=== PATIENT | male | born 1995 | race Caucasian/White ===

== ENCOUNTER 2019-03-04 17:42 | Inpatient (IN) | payer OTHER ==
[~2019-03-04] VITALS: Ht 188 cm; Wt 170.0 kg
--- NOTE | 2019-03-04 19:51 | NUR ---
THE PT STATED THAT HE HAS BEEN TO "3 DIFFERENT ERS WITH NO HELP" THE LAST ONE BEING LORI TEJADA.
--- NOTE | 2019-03-04 20:55 | NUR ---
MRI SHEET COMPLETED AND FAXED.
[2019-03-04] MEDS ORDERED: HYDROmorphone 1 MG/ML, 1ML VIAL ONE ×3 (20:57→22:21)
[2019-03-04] MEDS ORDERED: ONDANSETRON 2MG/ML, 2ML ONE (20:57)
[2019-03-04] MEDS ORDERED: SODIUM CHLORIDE FLUSH 10ML SYR IVF ONE (21:00)
[2019-03-04] MEDS: PLEASE ENTER ALLERGIES MC SCH ×2 (21:00→22:26)
[2019-03-04] MEDS ORDERED: ONDANSETRON 2MG/ML, 2ML IVPush ONE (21:00)
[2019-03-04] MEDS: HYDROmorphone 2 MG/ML, 1ML IVPush PRN ×2 (21:11→21:25)
--- NOTE | 2019-03-04 21:24 | NUR ---
TO MRI FOR THE SECOND DOSE OF DILAUDID THE PT WAS UNABLE TO LIE FLAT ON THE TABLE.
[2019-03-04] MEDS ORDERED: HYDROmorphone 2 MG/ML, 1ML IVPush PRN (22:30)
--- NOTE | 2019-03-04 22:30 | NUR ---
BACK FROM MRI.
[2019-03-04] MEDS ORDERED: SODIUM CHLORIDE FLUSH 10ML SYR IVF PRN (23:00)
[2019-03-04] MEDS ORDERED: HYDROmorphone 1 MG/ML, 1ML INJ IVPush PRN (23:00)
[2019-03-04] MEDS ORDERED: ONDANSETRON 2MG/ML, 2ML IVPush PRN (23:00)
[2019-03-04] MEDS ORDERED: LORazepam 2 MG/ML, 1ML IVPush PRN (23:00)
--- NOTE | 2019-03-04 23:17 | NUR ---
NOTED THE PT DESAT TO 88% ON R/A AFTER THE 3RD DOSE OF DILAUDID. PLACED ON 2L NC PER ED CARE PROTOCOL ERP IN ROOM. NOW 97 % ON 2L NC.
[2019-03-04 23:30] VITALS: BP 150/94
[2019-03-05] MEDS ORDERED: TEMAZEPAM 15 MG CAPSULE PO PRN (00:30)
[2019-03-05] MEDS ORDERED: ACETAMINOPHEN 325 MG TABLET PO PRN (00:30)
[2019-03-05] MEDS ORDERED: BISACODYL 10 MG SUPP PR PRN (00:30)
[2019-03-05] MEDS ORDERED: HYDROmorphone 1 MG/ML, 1ML INJ IV ONE (00:30)
[2019-03-05] MEDS: HYDROmorphone 2 MG/ML, 1ML IVPush PRN ×7 (00:54→20:32)
[2019-03-05 01:02] VITALS: BP 150/94
[2019-03-05 05:54] VITALS: BP 121/85
[2019-03-05 07:03] VITALS: BP 144/86
[2019-03-05] MEDS: GABAPENTIN 300 MG CAPSULE PO SCH ×3 (08:31→20:32)
[2019-03-05 09:00] LABS: BASOPHILS # (AUTO) 0.08 x10^3/uL (0-0.1); BASOPHILS % (AUTO) 1 % (0-1); EOSINOPHILS # (AUTO) 0.18 x10^3/uL (0-0.4); EOSINOPHILS % (AUTO) 2 % (1-7); LYMPHOCYTES # (AUTO) 1.93 x10^3/uL (1-3.4); LYMPHOCYTES % (AUTO) 25 % (22-44); MD NO; MEAN CORPUSCULAR HEMOGLOBIN 30.7 pg (27.5-34.5); MEAN CORPUSCULAR HGB CONC 33.6 g/dL (33.2-36.2); MEAN CORPUSCULAR VOLUME 91.5 fL (81-97); MEAN PLATELET VOLUME 7.8 fL (7.4-10.4); MONOCYTES # (AUTO) 0.66 x10^3/uL (0.2-0.8); MONOCYTES % (AUTO) 9 % (2-9); NEUTROPHILS # (AUTO) 4.79 x10^3/uL (1.8-6.8); NEUTROPHILS % (AUTO) 63 % (42-75); PLATELET COUNT 231 x10^3/uL (130-400); RED BLOOD COUNT 4.83 x10^6/uL (4.38-5.82); RED CELL DISTRIBUTION WIDTH 13.1 % (9.4-14.8)
[2019-03-05 09:10] LABS: INTERNATIONAL NORMALIZED RATIO 0.99 (0.93-1.1); PROTHROMBIN TIME 10.4 Seconds (9.6-11.5)
[2019-03-05 09:20] LABS: ANION GAP 6 mmol/L (5-15); CALCIUM 8.8 mg/dL (8.5-10.1); CHLORIDE 105 mmol/L (98-107); CREATININE 0.93 mg/dL (0.7-1.3)
[2019-03-05 12:16] VITALS: BP 126/88
[2019-03-05 20:20] VITALS: BP 138/85
[2019-03-06] MEDS: HYDROmorphone 2 MG/ML, 1ML IVPush PRN ×6 (01:42→23:43)
[2019-03-06 02:09] VITALS: BP 129/81
[2019-03-06 05:22] LABS: BASOPHILS # (AUTO) 0.03 x10^3/uL (0-0.1); BASOPHILS % (AUTO) 0 % (0-1); EOSINOPHILS # (AUTO) 0.09 x10^3/uL (0-0.4); EOSINOPHILS % (AUTO) 1 % (1-7); LYMPHOCYTES # (AUTO) 1.31 x10^3/uL (1-3.4); LYMPHOCYTES % (AUTO) 15 % (22-44); MD NO; MEAN CORPUSCULAR HGB CONC 33.4 g/dL (33.2-36.2); MEAN CORPUSCULAR VOLUME 92.8 fL (81-97); MEAN PLATELET VOLUME 8.3 fL (7.4-10.4); MONOCYTES # (AUTO) 0.71 x10^3/uL (0.2-0.8); MONOCYTES % (AUTO) 8 % (2-9); NEUTROPHILS # (AUTO) 6.73 x10^3/uL (1.8-6.8); NEUTROPHILS % (AUTO) 76 % (42-75); PLATELET COUNT 244 x10^3/uL (130-400); RED BLOOD COUNT 4.86 x10^6/uL (4.38-5.82); RED CELL DISTRIBUTION WIDTH 12.3 % (9.4-14.8)
[2019-03-06 05:33] LABS: ANION GAP 7 mmol/L (5-15); CALCIUM 9.1 mg/dL (8.5-10.1); CHLORIDE 104 mmol/L (98-107); CREATININE 0.84 mg/dL (0.7-1.3)
[2019-03-06] MEDS: GABAPENTIN 300 MG CAPSULE PO SCH ×3 (08:18→19:49)
[2019-03-06 09:34] VITALS: BP 142/87
[2019-03-06] MEDS: DOCUSATE 100 MG CAPSULE PO SCH ×2 (12:38→19:49)
[2019-03-06 15:16] VITALS: BP 145/90
[2019-03-06 19:31] VITALS: BP 132/92
[2019-03-06] MEDS: MAGNESIUM HYDROXIDE 8%, 30ML UDC PO SCH ×2 (19:49→21:00)
[2019-03-07 00:35] VITALS: BP 147/83
[2019-03-07] MEDS: MAGNESIUM HYDROXIDE 8%, 30ML UDC PO SCH ×2 (00:38→21:00)
[2019-03-07] MEDS: HYDROmorphone 2 MG/ML, 1ML IVPush PRN ×2 (04:11→19:32)
[2019-03-07 07:38] VITALS: BP 155/90
[2019-03-07] MEDS: GABAPENTIN 300 MG CAPSULE PO SCH ×3 (08:22→20:34)
[2019-03-07] MEDS: DOCUSATE 100 MG CAPSULE PO SCH ×2 (08:22→20:34)
[2019-03-07] MEDS: METHOCARBAMOL 750 MG TABLET PO PRN ×2 (08:25→20:34)
[2019-03-07] MEDS: HYDROcodone/APAP 5/325 TABLET PO PRN (08:26)
[2019-03-07] MEDS ORDERED: GABAPENTIN 100 MG CAPSULE PO SCH (09:00)
[2019-03-07] MEDS ORDERED: HYDROCORTISONE 250 MG/2 ML ONE (13:17)
[2019-03-07] MEDS ORDERED: MIDAZOLAM 1 MG/ML, 5ML ONE (14:22)
[2019-03-07] MEDS ORDERED: FENTANYL PF 100 MCG/2ML ONE ×2 (14:22)
[2019-03-07] MEDS ORDERED: NALOXONE 1 MG/ML, 2ML ONE (14:23)
[2019-03-07] MEDS ORDERED: FLUMAZENIL 0.1 MG/1 ML, 5ML ONE (14:23)
[2019-03-07 15:30] VITALS: BP 138/91
[2019-03-07 19:24] VITALS: BP 149/84
[2019-03-08 00:59] VITALS: BP 129/86
[2019-03-08] MEDS: HYDROmorphone 2 MG/ML, 1ML IVPush PRN ×5 (01:03→22:39)
[2019-03-08 06:45] VITALS: BP 143/88
[2019-03-08] MEDS: GABAPENTIN 300 MG CAPSULE PO SCH ×3 (08:09→22:43)
[2019-03-08] MEDS: DOCUSATE 100 MG CAPSULE PO SCH ×2 (08:09→22:43)
[2019-03-08] MEDS: METHOCARBAMOL 750 MG TABLET PO PRN ×2 (08:10→15:56)
[2019-03-08] MEDS: HYDROcodone/APAP 5/325 TABLET PO PRN (08:13)
[2019-03-08] MEDS ORDERED: MAGNESIUM CITRATE 300ML ORAL SOL PO ONE (11:30)
[2019-03-08 12:34] VITALS: BP 133/96
[2019-03-08] MEDS: HYDROcodone/APAP 10/325 MG TABLET PO PRN (15:55)
[2019-03-08 19:59] VITALS: BP 136/84
[2019-03-08] MEDS: MAGNESIUM HYDROXIDE 8%, 30ML UDC PO SCH (22:43)
[2019-03-08] MEDS: LIDODERM 5% PATCH TD PRN (22:46)
[2019-03-09 02:00] VITALS: BP 138/88
[2019-03-09] MEDS: HYDROmorphone 2 MG/ML, 1ML IVPush PRN ×7 (02:13→20:59)
[2019-03-09] MEDS: LIDODERM 5% PATCH TD PRN ×2 (02:53→21:34)
[2019-03-09 07:57] VITALS: BP 158/95
[2019-03-09] MEDS: DOCUSATE 100 MG CAPSULE PO SCH ×2 (09:00→21:00)
[2019-03-09] MEDS: GABAPENTIN 300 MG CAPSULE PO SCH ×3 (09:05→20:56)
[2019-03-09 13:00] VITALS: BP 143/83
[2019-03-09] MEDS: HYDROcodone/APAP 10/325 MG TABLET PO PRN ×2 (13:41→20:47)
[2019-03-09] MEDS: MAGNESIUM HYDROXIDE 8%, 30ML UDC PO SCH (20:56)
[2019-03-09 21:36] VITALS: BP 129/85
[2019-03-10] MEDS: HYDROmorphone 2 MG/ML, 1ML IVPush PRN ×9 (00:18→23:08)
[2019-03-10 00:32] VITALS: BP 137/80
[2019-03-10] MEDS: HYDROcodone/APAP 10/325 MG TABLET PO PRN (02:30)
[2019-03-10 07:16] VITALS: BP 139/94
[2019-03-10] MEDS: DOCUSATE 100 MG CAPSULE PO SCH ×2 (09:49→19:41)
[2019-03-10] MEDS: GABAPENTIN 400 MG CAPSULE PO SCH ×3 (09:50→22:03)
[2019-03-10 13:07] VITALS: BP 128/84
[2019-03-10 19:32] VITALS: BP 151/100
[2019-03-10] MEDS: MAGNESIUM HYDROXIDE 8%, 30ML UDC PO SCH (19:41)
[2019-03-10] MEDS: ONDANSETRON 2MG/ML, 2ML IVPush PRN (19:53)
[2019-03-10] MEDS: LIDODERM 5% PATCH TD PRN (22:03)
[2019-03-10 23:05] VITALS: BP 116/82
[2019-03-11] MEDS: HYDROmorphone 2 MG/ML, 1ML IVPush PRN ×7 (03:01→23:35)
[2019-03-11 03:07] VITALS: BP 138/93
[2019-03-11] MEDS: HYDROcodone/APAP 10/325 MG TABLET PO PRN ×2 (03:28→10:36)
[2019-03-11] MEDS: ONDANSETRON 2MG/ML, 2ML IVPush PRN (06:33)
[2019-03-11 07:06] VITALS: BP 137/83
[2019-03-11] MEDS: GABAPENTIN 400 MG CAPSULE PO SCH ×3 (08:55→23:36)
[2019-03-11] MEDS: DOCUSATE 100 MG CAPSULE PO SCH ×2 (09:00→21:00)
[2019-03-11 13:48] VITALS: BP 143/88
[2019-03-11] MEDS ORDERED: LACTATED RINGERS 1,000 ML IV SCH (19:00)
[2019-03-11 20:22] VITALS: BP 150/93
[2019-03-11] MEDS: MAGNESIUM HYDROXIDE 8%, 30ML UDC PO SCH (21:00)
[2019-03-11] MEDS: LIDODERM 5% PATCH TD PRN (23:36)
[2019-03-12] MEDS: HYDROcodone/APAP 10/325 MG TABLET PO PRN ×2 (00:39→09:48)
[2019-03-12] MEDS: ONDANSETRON 2MG/ML, 2ML IVPush PRN (00:39)
[2019-03-12 00:58] VITALS: BP 137/85
[2019-03-12] MEDS: HYDROmorphone 2 MG/ML, 1ML IVPush PRN ×6 (04:13→18:21)
[2019-03-12 05:19] LABS: BASOPHILS # (AUTO) 0.04 x10^3/uL (0-0.1); BASOPHILS % (AUTO) 0 % (0-1); EOSINOPHILS # (AUTO) 0.23 x10^3/uL (0-0.4); EOSINOPHILS % (AUTO) 2 % (1-7); LYMPHOCYTES # (AUTO) 2.07 x10^3/uL (1-3.4); LYMPHOCYTES % (AUTO) 22 % (22-44); MD NO; MEAN CORPUSCULAR HEMOGLOBIN 30.9 pg (27.5-34.5); MEAN CORPUSCULAR HGB CONC 33.2 g/dL (33.2-36.2); MEAN CORPUSCULAR VOLUME 93.1 fL (81-97); MEAN PLATELET VOLUME 8.1 fL (7.4-10.4); MONOCYTES # (AUTO) 0.45 x10^3/uL (0.2-0.8); MONOCYTES % (AUTO) 5 % (2-9); NEUTROPHILS # (AUTO) 6.62 x10^3/uL (1.8-6.8); NEUTROPHILS % (AUTO) 70 % (42-75); PLATELET COUNT 270 x10^3/uL (130-400); RED CELL DISTRIBUTION WIDTH 12.7 % (9.4-14.8)
[2019-03-12 05:30] LABS: INTERNATIONAL NORMALIZED RATIO 0.95 (0.93-1.1)
[2019-03-12 05:32] LABS: ANION GAP 4 mmol/L (5-15); CALCIUM 8.7 mg/dL (8.5-10.1); CHLORIDE 104 mmol/L (98-107)
[2019-03-12 05:33] LABS: CREATININE 0.73 mg/dL (0.7-1.3)
[2019-03-12 07:25] VITALS: BP 114/77
[2019-03-12] MEDS: GABAPENTIN 400 MG CAPSULE PO SCH ×3 (08:29→21:45)
[2019-03-12] MEDS: DOCUSATE 100 MG CAPSULE PO SCH ×2 (08:31→21:00)
[2019-03-12 13:08] VITALS: BP 142/90
[2019-03-12] MEDS ORDERED: THROMBIN 5,000 UNIT VIAL TP ONE (13:45)
[2019-03-12] MEDS ORDERED: BUPIVACAINE/PF 0.25% ONE (13:45)
[2019-03-12] MEDS ORDERED: BACITRACIN OINT 500U/GM, 15 GM ONE (13:45)
[2019-03-12] MEDS ORDERED: BACITRACIN 50,000 UNIT ONE ×2 (13:46→15:51)
[2019-03-12] MEDS ORDERED: VANCOMYCIN 1,000 MG ONE (13:46)
[2019-03-12] MEDS ORDERED: EPINEPHRINE 1 MG/ML, 1ML ONE (13:46)
[2019-03-12] MEDS ORDERED: MIDAZOLAM 1 MG/ML, 2ML ONE ×2 (14:24→14:47)
[2019-03-12] MEDS ORDERED: FENTANYL PF 250 MCG/5ML ONE (14:25)
[2019-03-12] MEDS ORDERED: HYDROmorphone 2 MG/ML, 1ML IVPush PRN (15:30)
[2019-03-12] MEDS ORDERED: ALBUTEROL SULFATE 2.5 MG/3 ML NPPB PRN (15:30)
[2019-03-12] MEDS ORDERED: KETOROLAC 30 MG/1 ML IV PRN ×2 (15:30→20:30)
[2019-03-12] MEDS ORDERED: LABETALOL 5MG/ML, 20ML IV PRN (15:30)
[2019-03-12] MEDS ORDERED: hydrALAzine 20 MG/ML, 1ML IV PRN (15:30)
[2019-03-12] MEDS ORDERED: MEPERIDINE/PF 25MG/0.5ML IVPush PRN (15:30)
[2019-03-12] MEDS ORDERED: PROMETHAZINE 25 MG/ML, 1ML IV PRN (15:30)
[2019-03-12] MEDS ORDERED: ACETAMINOPHEN 325 MG TABLET PO PRN (15:30)
[2019-03-12] MEDS ORDERED: OXYcodone 5 MG/5 ML ORAL.SOL UDC PO PRN (15:30)
[2019-03-12] MEDS ORDERED: MEPERIDINE/PF 100 MG/ML ONE (17:06)
[2019-03-12] MEDS ORDERED: PROPOFOL 10 MG/ML, 20ML ONE (17:07)
[2019-03-12] MEDS ORDERED: SUCCINYLCHOLINE 20 MG/ML, 10ML ONE (17:07)
[2019-03-12] MEDS ORDERED: CEFAZOLIN 1,000 MG ONE (17:07)
[2019-03-12] MEDS ORDERED: NEOSTIGMINE 1 MG/ML, 10ML ONE (17:07)
[2019-03-12] MEDS ORDERED: ROCURONIUM 10MG/ML,5ML ONE (17:07)
[2019-03-12] MEDS ORDERED: ONDANSETRON 2MG/ML, 2ML ONE (17:07)
[2019-03-12] MEDS ORDERED: DEXAMETHASONE 4 MG/ML, 1ML ONE (17:07)
[2019-03-12] MEDS ORDERED: GLYCOPYRROLATE 0.2MG/1ML, 5ML ONE (17:07)
[2019-03-12] MEDS ORDERED: FENTANYL PF 100 MCG/2ML ONE ×2 (17:24→18:30)
[2019-03-12] MEDS ORDERED: HYDROmorphone 2 MG/ML, 1ML ONE (17:24)
[2019-03-12] MEDS: FENTANYL PF 100 MCG/2ML IV PRN ×4 (17:25→18:38)
[2019-03-12] MEDS ORDERED: DIAZEPAM 5 MG/ML, 2ML ONE (17:32)
[2019-03-12] MEDS: DIAZEPAM 5 MG/ML, 2ML IVPush PRN ×2 (17:36→18:20)
[2019-03-12] MEDS ORDERED: hydrALAzine 20 MG/ML, 1ML ONE (17:42)
[2019-03-12] MEDS ORDERED: METHOCARBAMOL 1000MG/10 ML IV ONE (18:00)
[2019-03-12] MEDS ORDERED: LORazepam 2 MG/ML, 1ML ONE (18:16)
[2019-03-12] MEDS ORDERED: METHOCARBAMOL 1,000 MG in DEXTROSE 5% 100 ML IV ONE (18:30)
[2019-03-12] MEDS ORDERED: OXYcodone 5 MG/5 ML ORAL.SOL UDC ONE (18:46)
[2019-03-12] MEDS ORDERED: ONDANSETRON 2MG/ML, 2ML IV PRN (20:30)
[2019-03-12] MEDS ORDERED: HYDROmorphone 2 MG/ML, 1ML IM PRN (20:30)
[2019-03-12] MEDS ORDERED: PHARMACY MAY ADJ FOR RENAL FX MC PRN (20:30)
[2019-03-12] MEDS ORDERED: DIPHENHYDRAMINE 50 MG/ML, 1ML IVPush PRN (20:30)
[2019-03-12] MEDS ORDERED: BISACODYL 10 MG SUPP PR PRN (20:30)
[2019-03-12] MEDS ORDERED: MAGNESIUM HYDROXIDE 8%, 30ML UDC PO PRN (20:30)
[2019-03-12] MEDS ORDERED: OXYcodone/APAP 5/325MG TABLET PO PRN (20:30)
[2019-03-12] MEDS ORDERED: KETOROLAC 30 MG/1 ML IV ONE (21:00)
[2019-03-12] MEDS ORDERED: DIPHENHYDRAMINE 50 MG/ML, 1ML IM PRN (21:00)
[2019-03-12] MEDS: MAGNESIUM HYDROXIDE 8%, 30ML UDC PO SCH (21:00)
[2019-03-12] MEDS ORDERED: DIPHENHYDRAMINE 50 MG CAPSULE PO PRN (21:00)
[2019-03-12] MEDS: NS + 20MEQ KCL 1,000 ML IV SCH (21:53)
[2019-03-12] MEDS ORDERED: METHOCARBAMOL 750 MG TABLET PO SCH (22:00)
[2019-03-12] MEDS: OXYcodone/APAP 10/325MG TABLET PO PRN (23:15)
[2019-03-12] MEDS: HYDROmorphone 2MG TABLET PO PRN (23:49)
[2019-03-13 00:08] VITALS: BP 139/81
[2019-03-13] MEDS: CEFAZOLIN PMX 1GM/50ML 50 ML IVPB SCH ×2 (01:21→09:06)
[2019-03-13] MEDS: METHOCARBAMOL 750 MG in DEXTROSE 5% 100 ML IV SCH ×3 (02:08→18:06)
[2019-03-13] MEDS: HYDROmorphone 2 MG/ML, 1ML IV PRN ×4 (02:54→17:47)
[2019-03-13 03:44] VITALS: BP 139/79
[2019-03-13] MEDS: HYDROmorphone 2MG TABLET PO PRN ×3 (04:54→21:06)
[2019-03-13] MEDS: KETOROLAC 30 MG/1 ML IV SCH ×3 (05:05→21:07)
[2019-03-13] MEDS: NS + 20MEQ KCL 1,000 ML IV SCH ×2 (06:10→16:30)
[2019-03-13 06:26] VITALS: BP 136/87
[2019-03-13] MEDS: DOCUSATE 100 MG CAPSULE PO SCH ×2 (09:05→21:06)
[2019-03-13] MEDS: GABAPENTIN 400 MG CAPSULE PO SCH ×3 (09:05→23:09)
[2019-03-13] MEDS: HYDROcodone/APAP 10/325 MG TABLET PO PRN ×2 (09:05→13:37)
[2019-03-13] MEDS: SENNA/DOCUSATE TABLET PO SCH (09:05)
[2019-03-13] MEDS: METHOCARBAMOL 750 MG TABLET PO SCH ×3 (11:00→19:42)
[2019-03-13 13:03] VITALS: BP 141/86
[2019-03-13] MEDS ORDERED: ENOXAPARIN 40 MG/0.4 ML SQ SCH (17:00)
[2019-03-13 18:57] VITALS: BP 137/87
[2019-03-13] MEDS: MAGNESIUM HYDROXIDE 8%, 30ML UDC PO SCH ×2 (20:07→23:16)
[2019-03-13] MEDS: OXYcodone/APAP 10/325MG TABLET PO PRN (23:12)
[2019-03-14 01:21] VITALS: BP 118/82
[2019-03-14] MEDS: METHOCARBAMOL 750 MG in DEXTROSE 5% 100 ML IV SCH ×3 (02:30→18:32)
[2019-03-14] MEDS: NS + 20MEQ KCL 1,000 ML IV SCH ×2 (02:30→12:30)
[2019-03-14] MEDS: OXYcodone/APAP 10/325MG TABLET PO PRN ×6 (02:33→23:51)
[2019-03-14] MEDS: METHOCARBAMOL 750 MG TABLET PO SCH ×4 (05:21→23:51)
[2019-03-14] MEDS: KETOROLAC 30 MG/1 ML IV SCH ×3 (05:33→21:21)
[2019-03-14 08:00] VITALS: BP 125/84
[2019-03-14] MEDS: HYDROmorphone 2MG TABLET PO PRN ×2 (08:52→13:16)
[2019-03-14] MEDS: GABAPENTIN 400 MG CAPSULE PO SCH ×3 (08:52→21:17)
[2019-03-14] MEDS: DOCUSATE 100 MG CAPSULE PO SCH ×2 (08:53→21:00)
[2019-03-14] MEDS: SENNA/DOCUSATE TABLET PO SCH (08:53)
[2019-03-14] MEDS: ENOXAPARIN 30 MG/0.3 ML SQ SCH ×2 (10:13→21:18)
[2019-03-14] MEDS ORDERED: MAGNESIUM CITRATE 300ML ORAL SOL PO ONE (11:30)
[2019-03-14 14:00] VITALS: BP 142/80
[2019-03-14 18:49] VITALS: BP 135/80
[2019-03-14] MEDS: MAGNESIUM HYDROXIDE 8%, 30ML UDC PO SCH (21:00)
[2019-03-15 01:59] VITALS: BP 139/87
[2019-03-15] MEDS ORDERED: METHOCARBAMOL 750 MG TABLET PO SCH (02:00)
[2019-03-15] MEDS: OXYcodone/APAP 10/325MG TABLET PO PRN ×3 (03:57→12:22)
[2019-03-15] MEDS: KETOROLAC 30 MG/1 ML IV PRN ×2 (05:07→12:21)
[2019-03-15] MEDS: METHOCARBAMOL 750 MG TABLET PO SCH ×2 (06:04→10:37)
[2019-03-15 07:11] LABS: BASOPHILS # (AUTO) 0.03 x10^3/uL (0-0.1); BASOPHILS % (AUTO) 0 % (0-1); EOSINOPHILS % (AUTO) 2 % (1-7); LYMPHOCYTES # (AUTO) 1.48 x10^3/uL (1-3.4); LYMPHOCYTES % (AUTO) 17 % (22-44); MD NO; MEAN CORPUSCULAR HEMOGLOBIN 30.4 pg (27.5-34.5); MEAN CORPUSCULAR HGB CONC 33.1 g/dL (33.2-36.2); MEAN CORPUSCULAR VOLUME 91.7 fL (81-97); MEAN PLATELET VOLUME 7.4 fL (7.4-10.4); MONOCYTES % (AUTO) 9 % (2-9); NEUTROPHILS # (AUTO) 6.45 x10^3/uL (1.8-6.8); NEUTROPHILS % (AUTO) 72 % (42-75); PLATELET COUNT 247 x10^3/uL (130-400); RED BLOOD COUNT 4.21 x10^6/uL (4.38-5.82)
[2019-03-15 07:20] LABS: ANION GAP 6 mmol/L (5-15); CALCIUM 8.7 mg/dL (8.5-10.1); CHLORIDE 106 mmol/L (98-107); CREATININE 0.72 mg/dL (0.7-1.3)
[2019-03-15 08:00] VITALS: BP 128/75
[2019-03-15] MEDS: DOCUSATE 100 MG CAPSULE PO SCH (08:14)
[2019-03-15] MEDS: ENOXAPARIN 30 MG/0.3 ML SQ SCH (08:14)
[2019-03-15] MEDS: SENNA/DOCUSATE TABLET PO SCH (08:14)
[2019-03-15] MEDS: GABAPENTIN 400 MG CAPSULE PO SCH (08:14)
[2019-03-15 12:56] VITALS: BP 138/99
[2019-03-15] MEDS ORDERED: GABA-827 PO (14:23)
[2019-03-15] MEDS ORDERED: OXYC-432 PO (14:23)
[2019-03-15] MEDS ORDERED: METH750T87 PO (14:23)
[2019-03-15] MEDS ORDERED: CEPH-368 PO (14:23)
[2019-03-15] MEDS ORDERED: MAGN296S9 PO (14:23)
== END 2019-03-15 15:20 | disposition home or self-care (01) | DRG 519 ==
LOC: ED 22:55 → EDIP 22:59 → 3N 23:25 → 4NE 03-12 14:14 → 3N 03-14 16:51 → 4NE 03-14 17:11 → DCLOUNGE 03-15 15:02
PROVIDERS: ADMIT Family Medicine; ATTEND Family Medicine
PROC: 3E0R3GC Introduction of Other Therapeutic Substance into Spinal Canal, Percutaneous Approach (ICD-10-PCS; 2019-03-07)
PROC: 01NB0ZZ Release Lumbar Nerve, Open Approach (ICD-10-PCS; 2019-03-12)
PROC: 00NY0ZZ Release Lumbar Spinal Cord, Open Approach (ICD-10-PCS; 2019-03-12)
PROC: 0SB20ZZ Excision of Lumbar Vertebral Disc, Open Approach (ICD-10-PCS; principal; 2019-03-12 14:30)
DX: M48.061 Spinal stenosis, lumbar region without neurogenic claudication (principal); M48.56XA Collapsed vertebra, not elsewhere classified, lumbar region, initial encounter for fracture; Z68.42 Body mass index [BMI] 45.0-49.9, adult; M47.26 Other spondylosis with radiculopathy, lumbar region; M51.16 Intervertebral disc disorders with radiculopathy, lumbar region; M51.27 Other intervertebral disc displacement, lumbosacral region; E66.01 Morbid (severe) obesity due to excess calories; R26.9 Unspecified abnormalities of gait and mobility; K59.00 Constipation, unspecified; F17.200 Nicotine dependence, unspecified, uncomplicated; Z82.5 Family history of asthma and other chronic lower respiratory diseases; Z71.6 Tobacco abuse counseling; Z71.3 Dietary counseling and surveillance; Z79.899 Other long term (current) drug therapy
CPT/HCPCS: 36415; 62322; 62323; 72100; 72148; 80048; 85025; 85610; 85730; 93005; 99156; 99157; 99285; C1729; G0378; J0171; J0690; J1100; J1170; J1650; J1720; J1885; J2250; J2405; J2704; J2710; J3010; J3360; J3370; J3480; J3490; J7509; J0330; J0360; J2175; J2310; J2800; J7120